=== PATIENT | male | born 1960 | race African-American/Black ===

== ENCOUNTER 2018-08-10 05:34 | Day surgery (SDC) | payer OTHER ==
[~2018-08-10] VITALS: Ht 180.3 cm; Wt 94.3 kg
--- NOTE | ~2018-08-10 | OP ---
PATIENT NAME: KATHERINE PULIDO MEDICAL RECORD: [id number] :56 [facility] DATE: SURGEON: SHILPI KRAMER MD DATE OF OPERATION: 08/10/2018 PREOPERATIVE DIAGNOSIS: History of a low rectal mass, which was a tubular adenoma. POSTOPERATIVE DIAGNOSIS: History of a low rectal mass, which was a tubular adenoma. PROCEDURES: Transanal excision of low rectal mass. SURGEON: Shilpi Kramer MD FIELD MARKETER: None. BLOOD LOSS: 50 cc. ANESTHESIA: General. COMPLICATIONS: None. The risks, possible complications and alternatives to procedure were explained to the patient. He elects to proceed. The discussion specifically included, but was not limited to, bleeding requiring emergency reoperation, infection, recurrence of the mass, and the possible need for an additional operative procedures should the mass prove to represent a malignancy. OPERATIVE COURSE: The patient was conveyed to the operating room electively on 08/10/2018. General anesthesia was induced by the anesthesia staff. The patient was placed in the lithotomy position. The buttocks were taped laterally. The buttocks and perianal area was sterilely prepped and draped. U-shaped anal retractors were placed. There was enlargement of the external hemorrhoids. No fistula. No fissure. The operating anoscope was inserted. I was able to identify the mass, which was somewhat pedunculated. Stay sutures of 0 Vicryl were placed on the either side of the mass. I then injected a vial of Eleview into the base of the mass, submucosally. I then excised the mass with Metzenbaum scissors. It was excised in its entirety. I then oversewed the excision with running 0 Vicryl sutures. I then imbricated the suture line with interrupted 0 Vicryl sutures. I then ensured that I had not oversewn the entire rectum. Gelfoam was applied up into the mid rectum as well as the lower rectum and anus. A combination of a steroid preparation and Marcaine was used to infiltrate the perianal tissues. A topical anesthetic ointment was applied to the external hemorrhoids. The patient was then extubated and conveyed to post-anesthesia care unit where he was in stable condition. He will be dismissed back to longterm with hydrocodone as well as Colace. There is no need for him to follow up with me in the office as I will be rounding at the longterm and I can see him there. TRANSINT:[id number] Voice Confirmation ID: [id number] DOCUMENT ID: [id number] OPERATIVE REPORT [id number] KATHERINE PULIDO ROBERT MD at 1653 CC: GONZALO PENA MD, SHILPI DUENAS MD, MELE MCDANIELS MD and [id number] DICTATION DATE: 08/10/18 1300 MARKETING STRATEGIST: 08/10/18 1321 [facility] 08/10/18 [id number] [place] [address]
[2018-08-10] MEDS ORDERED: NAPROXEN250 MG PO (06:24)
[2018-08-10] MEDS ORDERED: ACETAMINOPHEN500 M1 PO (06:26)
[2018-08-10] MEDS ORDERED: ZANTAC300 MG PO (06:27)
[2018-08-10 06:43] VITALS: BP 131/90; Ht 180.3 cm; Wt 94.3 kg
[2018-08-10 06:59] LABS: HEMATOCRIT 32.3 % (42.0-54.0); HEMOGLOBIN 10.9 g/dL (13.5-17.5); MCH 27.3 pg (26.0-34.0); MCHC 33.7 g/dL (31.0-37.0); MCV 80.8 fL (80.0-100.0); MEAN PLATELET VOLUME 9.5 fL (7.4-10.4); PLATELET COUNT 182 10x3/uL (130-400); RDW 14.8 % (11.5-14.5); WBC 2.8 10x3/uL (4.8-10.8)
[2018-08-10 07:15] LABS: ANION GAP 11.4 mmol/L (8-16); CALCIUM 8.4 mg/dL (8.5-10.1); CARBON DIOXIDE 26.9 mmol/L (21.0-32.0); CREATININE - SERUM 1.1 mg/dL (0.6-1.3); POTASSIUM - SERUM 3.3 mmol/L (3.5-5.1)
[2018-08-10 08:33] LABS: EOSINOPHILS 5 % (0-7); LYMPHOCYTES 33 % (15-50); MONOCYTES 18 % (2-11); NEUTROPHILS 44 % (40-80); PLATELET ESTIMATE NORMAL
[2018-08-10 08:34] LABS: ANISOCYTOSIS OCC; HYPOCHROMASIA OCC; ROULEAUX OCC
== END 2018-08-10 14:00 ==
LOC: D.OPS 05:34
PROVIDERS: Surgery
DX: D12.8 Benign neoplasm of rectum (principal); Z01.812 Encounter for preprocedural laboratory examination

== ENCOUNTER 2020-04-30 07:00 | Day surgery (SDC) | payer OTHER ==
[~2020-04-30] VITALS: Ht 180.3 cm; Wt 96.4 kg
--- NOTE | ~2020-04-30 | OP ---
PATIENT NAME: KATHERINE PULIDO MEDICAL RECORD: [id number] :56 LOCATION:D[facility] ADMISSION DATE: SURGEON: SHILPI KRAMER MD DATE OF OPERATION: 04/30/2020 PREOPERATIVE DIAGNOSES: 1. History of a low rectal polyp, which was treated with transanal excision by id back in July of 2018. 2. Severe iron deficiency anemia. POSTOPERATIVE DIAGNOSES: 1. History of a low rectal polyp, which was treated with transanal excision by id back in July of 2018. 2. Severe iron deficiency anemia. 3. Inadequate colonic prep. 4. Significant regrowth of the low rectal polyp at 6 cm. PROCEDURES: 1. Total colonoscopy to cecum. 2. Endoscopic mucosal resection of large recurrent rectal polyp at 6 cm. This was a suspicious appearing polyp. 3. Endoscopic mucosal tattooing, proximal and distal to the polyp. SURGEON: Shilpi Kramer MD GOLD RECLAIMER: None. BLOOD LOSS: Minimal. ANESTHESIA: IV sedation. COMPLICATIONS: None. The risks, possible complications and alternatives to the procedure were explained to the patient. He elects to proceed. The discussion specifically included, but was not limited to, bleeding requiring emergency reoperation, infection, possible need for an operative procedure or procedures. The polyp certainly could be the source of the patient's severe iron deficiency anemia. Throughout the rest of the large bowel I can only exclude obstructing colonic masses due to the poor (inadequate) prep. OPERATIVE COURSE: The patient was conveyed to endoscopy suite electively on 04/30/2020. IV sedation was induced by the anesthesia staff. The patient was placed in the Oseguera position. A digital rectal examination was performed. The polyp could be felt at the very extent of my finger. A colonoscope was inserted through the anus. It was easily advanced to the cecum. Upon withdrawal, I irrigated and aspirated extensively. A combination of normal imaging and narrow band imaging were utilized. I noted a polyp at 6 cm. I advanced a sclerotherapy needle. At the base of the polyp, I injected epinephrine. There was a good lift to the polyp. I then advanced a sclerotherapy needle and performed a submucosal injection of Eleview. This was a piecemeal polypectomy. I advanced the endoscopic snare. Utilizing the coagulation setting, I performed a snare polypectomy of the entire polyp. OPERATIVE REPORT [id number] KATHERINE PULIDO Portions of the polyp were suctioned into the polyp trap. Some cold biopsies were obtained at the base of the polyp. The base of the polyp was firm and this may be due to some ominous process such as a malignancy or it may be just due to scar tissue from the patient's prior operation. I advanced a sclerotherapy needle. Proximal and distal to the polyp, I performed a submucosal injection of 2 cc of Francia ink at both sites. Utilizing the argon plasma weapons officer naval activity, I cauterized the base of the polyp with the right colon setting in the forced mode. I then withdrew under direct vision. I will schedule the patient for a transanal resection of this recurrent polyp unless the patient has an invasive malignancy. TRANSINT:[id number] Voice Confirmation ID: [id number] DOCUMENT ID: [id number] SHILPI KRAMER MD CC: JODIE SULLIVAN DR. [id number] DICTATION DATE: 04/30/20 1225 FOREIGN STUDENT ADVISER: 04/30/20 1356 [facility] 04/30/[address] [address]
--- NOTE | ~2020-04-30 | HP ---
PATIENT: KATHERINE PULIDO MEDICAL RECORD: [id number] ACCOUNT: [id number] LOCATION:[facility] : 56 ADMISSION DATE: 04/30/20 PCP: No PCP HISTORY AND PHYSICAL EXAMINATION HISTORY OF PRESENT ILLNESS: The patient has had iron deficiency anemia and also hematochezia. During an upper endoscopy, which I think that I performed, the patient had chronic gastritis and it looks like partially treated for H. pylori. He still has belching, abdominal fullness as well as an epigastric burning. Iron deficiency anemia is severe. He has had a history of large polyp removed from the distal colon in 2018. He is here for a colonoscopy. He has undergone a bowel prep. PAST MEDICAL AND SURGICAL HISTORY: Hepatitis B, colon polyps, history of arthritis, hypertension, and hypercholesterolemia. LONG TERM MEDICINES: Zantac, naproxen, Tylenol. ALLERGIES: No known drug allergies. REVIEW OF SYSTEMS: Negative for CVA, seizures, diabetes, thyroid problems, renal disease. PHYSICAL EXAMINATION: GENERAL: The patient does not appear acutely ill. He does not appear chronically ill. VITAL SIGNS: Reviewed. EARS: External ears appear normal. EYES: Extraocular movements are intact. NECK: Trachea is midline. CHEST: No intercostal retractions. PULMONARY: Nonlabored, no stridor. IMPRESSION: 1. Iron deficiency anemia, severe. 2. Hematochezia. PLAN: Colonoscopy. We have not been asked to perform an upper endoscopy on this patient today. TRANSINT:[id number] Voice Confirmation ID: [id number] DOCUMENT ID: [id number] SHILPI KRAMER MD CC: JODIE SULLIVAN DR. [id number] DICTATION DATE: 04/30/20 112 OFFICE MANAGER: 04/30/20 1223 [facility] [address] [place] [address]
[~2020-04-30 07:00] MED LIST: ACETAMINOPHEN500 M1 PO; NAPROXEN250 MG PO; ZANTAC300 MG PO
[2020-04-30 09:37] VITALS: BP 147/99; Ht 180.3 cm; Wt 96.4 kg
[2020-04-30 10:10] LABS: BASOPHILS 0.4 % (0-2); EOSINOPHILS 3.4 % (0-7); HEMATOCRIT 33.6 % (42.0-54.0); LYMPHOCYTES 30.7 % (15-50); MCH 25.2 pg (26.0-34.0); MCHC 32.7 g/dL (31.0-37.0); MCV 77.1 fL (80.0-100.0); MEAN PLATELET VOLUME 9.6 fL (7.4-10.4); MONOCYTES 24.9 % (2-11); NEUTROPHILS 40.6 % (40-80); PLATELET COUNT 208 10x3/uL (130-400); RBC 4.36 10x6/uL (4.20-6.10); RDW 16.7 % (11.5-14.5); WBC 2.6 10x3/uL (4.8-10.8)
[2020-04-30 10:18] LABS: ANION GAP 10.1 mmol/L (8-16); CALCIUM 7.9 mg/dL (8.5-10.1); CARBON DIOXIDE 28.3 mmol/L (21.0-32.0); CREATININE - SERUM 1.3 mg/dL (0.6-1.3); POTASSIUM - SERUM 4.4 mmol/L (3.5-5.1)
== END 2020-04-30 13:45 | disposition home or self-care (01) ==
LOC: D.OPS 07:00
PROVIDERS: ATTEND Surgery
DX: D50.9 Iron deficiency anemia, unspecified (principal); K62.1 Rectal polyp

== ENCOUNTER → 2020-04-30 07:45 | Outpatient (CLI) | payer OTHER ==
[2018-08-10 06:43] VITALS: BMI 29.0
--- NOTE | 2020-04-30 13:45 | NUR ---
PIV DC'D WITH TIP INTACT, DISCHARGE INSTRUCTIONS REVIEWED WITH PATIENT, DISCHARGED TO ADC UNIT WITH ADC GUARDS IN WHEELCHAIR
== END | disposition home or self-care (01) ==
LOC: D.OPS 07:45
PROVIDERS: ATTEND Surgery
DX: D50.9 Iron deficiency anemia, unspecified (principal); R07.9 Chest pain, unspecified; I10 Essential (primary) hypertension

== ENCOUNTER 2021-02-03 05:11 | Day surgery (SDC) | payer OTHER ==
[~2021-02-03] VITALS: Ht 180.3 cm; Wt 84.8 kg
[~2021-02-03 05:11] MED LIST changes: +ACETAMINOPHEN325 MG PO; +BACLOFEN10 MG PO; +COLACE100 MG PO; +COZAAR25 MG PO; +COZAAR50 MG PO; +HYDROCHLOROTHIA25 MG PO; +KEPPRA500 MG PO; +LOPRESSOR25 MG PO; +MIRALAX17 GM PO; +NEURONTIN 300300 MG PO; +SENNA LAXATIVE8.6 MG PO; +ZYRTEC10 MG PO
[2021-02-03 05:44] VITALS: BP 160/92; Ht 180.3 cm; Wt 84.8 kg
[2021-02-03 05:57] LABS: BASOPHILS 0.7 % (0-2); EOSINOPHILS 6.5 % (0-7); HEMATOCRIT 33.4 % (42.0-54.0); HEMOGLOBIN 11.7 g/dL (13.5-17.5); LYMPHOCYTE ABS# 1.03 10x3/uL (1.32-3.57); LYMPHOCYTES 35.4 % (15-50); MCH 30.1 pg (26.0-34.0); MCV 85.9 fL (80.0-100.0); MEAN PLATELET VOLUME 11.2 fL (7.4-10.4); MONOCYTES 18.9 % (2-11); NEUTROPHIL ABS# 1.12 10x3/uL (1.78-5.38); NEUTROPHILS 38.5 % (40-80); PLATELET COUNT 182 10x3/uL (130-400); RBC 3.89 10x6/uL (4.20-6.10); WBC 2.9 10x3/uL (4.8-10.8)
[2021-02-03 06:12] LABS: ANION GAP 10.2 mmol/L (8-16); CALCIUM 8.4 mg/dL (8.5-10.1); CARBON DIOXIDE 29.7 mmol/L (21.0-32.0); CREATININE - SERUM 1.8 mg/dL (0.6-1.3)
[2021-02-03 06:14] LABS: POTASSIUM - SERUM 2.9 mmol/L (3.5-5.1)
[2021-02-03] MEDS ORDERED: BAYER CHEWABLE81 MG (07:39)
[2021-02-03] MEDS ORDERED: PAMELOR 25 MG C25 MG (07:40)
[2021-02-03] MEDS ORDERED: COZAAR100 MG (07:40)
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
--- NOTE | 2021-03-03 09:27 | OP ---
PATIENT NAME: KATHERINE PULIDO MEDICAL RECORD: [id number] :56 [facility] DATE: SURGEON: SHILPI KRAMER MD DATE OF OPERATION: 02/03/2021 PREOPERATIVE DIAGNOSIS: Recurrent rectal polyp. POSTOPERATIVE DIAGNOSIS: Recurrent semi-pedunculated rectal polyp. PROCEDURE: Transanal excision of low rectal mass. SURGEON: Shilpi Kramer MD APPROVER: None. BLOOD LOSS: 100 cc. ANESTHESIA: General. COMPLICATIONS: None. The risks, possible complications, and alternatives of the procedure were explained to the patient. He elects to proceed. The discussion specifically included, but was not limited to, bleeding requiring emergency reoperation, infection, full thickness rectal injury and the possible need for additional reoperation in the future. OPERATIVE COURSE: The patient was conveyed to the operating room electively on 02/03/2021 and general anesthesia was induced by the anesthesia staff. The patient was placed in the lithotomy position. The buttocks were taped laterally. A well lubricated U-shaped anal retractors were placed. I examined the anus. No evidence of an anal fistula. No evidence of an anal fissure. The previous excision site was identified. A stay suture of 0 Vicryl was placed cephalad to this recurrent polypoid mass. I then injected a dilute epinephrine solution into the submucosal tissues for hemostasis. Through the use of double curvilinear incisions starting just caudad to the 0 Vicryl suture, I excised the polypoid mass down to the anal sphincters and this included distal rectum that appeared to be a full thickness excision. This was then sent to the pathologist. Submucosal flaps were created sharply. The closure was then accomplished with running 2-0 Vicryl. I then imbricated this with some additional 2-0 Vicryls in a horizontal mattress fashion. A combination of steroid preparation and Marcaine were used to infiltrate the perianal tissues. Gelfoam was applied within the anus and lower rectum. An anesthetic cream was applied to the external hemorrhoids. The patient was then extubated and conveyed to post-anesthesia care unit where he was in stable condition. TRANSINT:[id number] Voice Confirmation ID: [id number] DOCUMENT ID: [id number] OPERATIVE REPORT [id number] ASHOKKATHERINESHILPI BENJAMIN MD at 0927 CC: [id number] DICTATION DATE: 03/03/21617 CREPE LAMINATOR OPERATOR: 03/03/21 0847 [facility] 02/03/21 [address] [id number] [place] [id number]
== END 2021-02-03 12:00 ==
LOC: D.OPS 05:11
PROVIDERS: Anesthesiology; ATTEND Surgery
DX: Z86.010 Personal history of colon polyps (principal); K62.1 Rectal polyp; R19.5 Other fecal abnormalities